=== PATIENT | male | born 1950 | race African-American/Black ===

== ENCOUNTER 2019-12-17 16:26 | Inpatient (IN) ==
[2019-12-17] MEDS ORDERED: FUROSEMIDE 100 MG/10 ML VIAL IV STA (17:53)
[2019-12-17 18:01] LABS: Albumin 3.6 G/DL (3.4-5.0); Bilirubin,Total 0.7 MG/DL (0.2-1.0); Calcium 9.1 MG/DL (8.5-10.1); Ferritin 313.6 ng/ml (26-388); Osmolality,Calculated 307.7 MOS/KG (273-304); Total Protein 7.6 G/DL (6.4-8.3)
[2019-12-17 21:01] LABS: Basophils % 0.4 % (0.0-0.8); Eosinophils # 0.4 10*3/uL (0.0-0.87); Eosinophils % 3.7 % (0.00-10.9); Hematocrit 31.9 VOL% (42.0-52.0); Hemoglobin 10.6 GM/DL (14.0-18.0); Immature Granulocytes % 0.9 %; Immature Granulocytes Absolute 0.08 #; Lymphocytes # 1.7 10*3/uL (1.4-4.0); Lymphocytes % 17.7 % (21.2-54.2); Mean Corpuscular HGB Conc 33.2 GM/DL (32-36); Mean Corpuscular Volume 82.2 FL (87-102); Mean Platelet Volume 10.7 FL (9.6-12.0); Neutrophils % 70.3 % (38.7-73.9); Platelet Count 236 T/CUMM (130-400); Red Blood Count 3.88 MC/CUMM (3.8-5.5); Red Cell Distribution Width 17.6 % (9.3-17.3); White Blood Count 9.3 T/CUMM (4-12)
[2019-12-17 21:03] LABS: Bilirubin,Urine Negative (Negative); Blood, Urine Negative (Negative); Glucose,Urine (UA) Negative (Negative); Ketones,Urine Negative (Negative); Nitrite,Urine Negative (Negative); Protein,Urine 30 MG/DL; RBC,Urine 11 /HPF (0-4); Urine Appearance CLEAR (Clear); Urine Color Straw (Yellow); Urine Specific Gravity 1.008 (1.001-1.035); Urine Urobilinogen < 2.0 EU/DL (0.2-1.0); WBC,Urine 2 /HPF (0-6)
[2019-12-17] MEDS ORDERED: guaiFENesin/DM ER 600-30 MG TABLET PO PRN (22:13)
[2019-12-17] MEDS ORDERED: DEXTROSE 50% 25 GM/50 ML VIAL IV PRN ×2 (22:13)
[2019-12-17] MEDS ORDERED: ACETAMINOPHEN 325 MG TABLET PO PRN (22:13)
[2019-12-17] MEDS ORDERED: GLUCAGON 1 MG VIAL IM PRN ×2 (22:13)
[2019-12-17] MEDS ORDERED: NICOTINE 21 MG/24 HR PATCH TRANSDERM PRN (22:13)
[2019-12-17] MEDS ORDERED: hydrALAZINE 20 MG/1 ML VIAL IV PRN (22:13)
[2019-12-17] MEDS ORDERED: diphenhydrAMINE CAP 25 MG CAPSULE PO PRN (22:13)
[2019-12-17] MEDS ORDERED: hydrALAZINE 20 MG/1 ML VIAL IV STA (22:44)
[2019-12-18] MEDS: ONDANSETRON 4 MG/2 ML VIAL IV PRN ×2 (01:01→12:12)
[2019-12-18 05:23] LABS: Basophils % 0.3 % (0.0-0.8); Eosinophils # 0.2 10*3/uL (0.0-0.87); Eosinophils % 2.4 % (0.00-10.9); Hematocrit 29.5 VOL% (42.0-52.0); Hemoglobin 9.7 GM/DL (14.0-18.0); Immature Granulocytes % 0.7 %; Immature Granulocytes Absolute 0.06 #; Lymphocytes # 1.2 10*3/uL (1.4-4.0); Lymphocytes % 13.7 % (21.2-54.2); Mean Corpuscular HGB Conc 32.9 GM/DL (32-36); Mean Corpuscular Volume 81.3 FL (87-102); Mean Platelet Volume 10.4 FL (9.6-12.0); Neutrophils % 78.9 % (38.7-73.9); Platelet Count 233 T/CUMM (130-400); Red Blood Count 3.63 MC/CUMM (3.8-5.5); Red Cell Distribution Width 17.4 % (9.3-17.3); White Blood Count 8.8 T/CUMM (4-12)
[2019-12-18 05:43] LABS: Osmolality,Calculated 311.7 MOS/KG (273-304)
[2019-12-18] MEDS: BICTEGRAV EMTRICIT TENOFOV ALA PO SCH (10:00)
[2019-12-18] MEDS: carvediloL 25 MG TABLET PO SCH ×2 (10:31→18:01)
[2019-12-18] MEDS: BUDESONIDE/FORMOTEROL 160-4.5 INHALER 6 GM INH SCH ×2 (10:31→21:22)
[2019-12-18] MEDS: INSULIN LISPRO 100 UNIT/ML SUBCUT SCH ×4 (10:32→21:21)
[2019-12-18] MEDS: HEPARIN 5,000 UNIT/1 ML VIAL SUBCUT SCH ×2 (10:42→21:21)
[2019-12-18] MEDS: TAMSULOSIN 0.4 MG CAPSULE PO SCH ×2 (14:22→21:21)
[2019-12-18] MEDS: SODIUM CHLORIDE 0.9% 1,000 ML IV SCH (14:25)
[2019-12-18 17:02] LABS: Bacteria,Urine Occasional /HPF (Few); Bilirubin,Urine Negative (Negative); Blood, Urine Negative (Negative); Glucose,Urine (UA) Negative (Negative); Ketones,Urine Negative (Negative); Nitrite,Urine Negative (Negative); Protein,Urine 30 MG/DL; Urine Appearance CLEAR (Clear); Urine Color Straw (Yellow); Urine Specific Gravity 1.008 (1.001-1.035); Urine Urobilinogen < 2.0 EU/DL (0.2-1.0)
[2019-12-18] MEDS: LATANOPROST 0.005% OPH SOLN 2.5 ML BOTTLE BOTH EYES SCH (21:22)
[2019-12-18] MEDS: ATORVASTATIN 40 MG TABLET PO SCH (21:22)
[2019-12-19] MEDS: MORPHINE 4 MG/1 ML VIAL IV PRN ×3 (01:00→20:05)
[2019-12-19] MEDS: SODIUM CHLORIDE 0.9% 1,000 ML IV SCH ×2 (04:34→17:34)
[2019-12-19 05:23] LABS: Basophils % 0.4 % (0.0-0.8); Eosinophils # 0.3 10*3/uL (0.0-0.87); Eosinophils % 3.8 % (0.00-10.9); Hematocrit 28.9 VOL% (42.0-52.0); Hemoglobin 9.5 GM/DL (14.0-18.0); Immature Granulocytes % 0.5 %; Immature Granulocytes Absolute 0.04 #; Lymphocytes # 1.3 10*3/uL (1.4-4.0); Lymphocytes % 16.6 % (21.2-54.2); Mean Corpuscular HGB Conc 32.9 GM/DL (32-36); Mean Corpuscular Volume 81.9 FL (87-102); Monocytes % 6.5 % (1.7-12.7); Neutrophils % 72.2 % (38.7-73.9); Platelet Count 232 T/CUMM (130-400); Red Blood Count 3.53 MC/CUMM (3.8-5.5); White Blood Count 7.7 T/CUMM (4-12)
[2019-12-19 05:49] LABS: Albumin 2.9 G/DL (3.4-5.0); Bilirubin,Total 1.1 MG/DL (0.2-1.0); Calcium 8.5 MG/DL (8.5-10.1); Osmolality,Calculated 319.7 MOS/KG (273-304); Total Protein 6.4 G/DL (6.4-8.3)
[2019-12-19] MEDS: INSULIN LISPRO 100 UNIT/ML SUBCUT SCH ×4 (09:31→20:31)
[2019-12-19] MEDS: BICTEGRAV EMTRICIT TENOFOV ALA PO SCH (09:32)
[2019-12-19] MEDS: carvediloL 25 MG TABLET PO SCH ×2 (09:32→17:32)
[2019-12-19] MEDS: amLODIPine 10 MG TABLET PO SCH (09:33)
[2019-12-19] MEDS: TAMSULOSIN 0.4 MG CAPSULE PO SCH ×2 (09:33→20:30)
[2019-12-19] MEDS: HEPARIN 5,000 UNIT/1 ML VIAL SUBCUT SCH ×2 (09:34→20:30)
[2019-12-19] MEDS: BICALUTAMIDE 50 MG TABLET PO SCH (09:34)
[2019-12-19] MEDS: BUDESONIDE/FORMOTEROL 160-4.5 INHALER 6 GM INH SCH ×2 (09:35→20:32)
[2019-12-19] MEDS: ONDANSETRON 4 MG/2 ML VIAL IV PRN (15:41)
[2019-12-19] MEDS: ATORVASTATIN 40 MG TABLET PO SCH (20:30)
[2019-12-19] MEDS: ZALEPLON 5 MG CAPSULE PO PRN (20:30)
[2019-12-19] MEDS: LATANOPROST 0.005% OPH SOLN 2.5 ML BOTTLE BOTH EYES SCH (20:32)
[2019-12-19] MEDS ORDERED: DOCOSANOL 10% CREAM 2 GM TUBE TOP PRN (21:23)
[2019-12-20] MEDS: MORPHINE 4 MG/1 ML VIAL IV PRN ×2 (00:35→04:18)
[2019-12-20] MEDS: SODIUM CHLORIDE 0.9% 1,000 ML IV SCH (05:47)
[2019-12-20 06:02] LABS: Basophils % 0.3 % (0.0-0.8); Eosinophils # 0.3 10*3/uL (0.0-0.87); Eosinophils % 4.9 % (0.00-10.9); Hematocrit 27.2 VOL% (42.0-52.0); Hemoglobin 9.2 GM/DL (14.0-18.0); Immature Granulocytes % 0.2 %; Immature Granulocytes Absolute 0.01 #; Lymphocytes # 1.6 10*3/uL (1.4-4.0); Lymphocytes % 25.3 % (21.2-54.2); Mean Corpuscular HGB Conc 33.8 GM/DL (32-36); Mean Platelet Volume 10.9 FL (9.6-12.0); Monocytes % 8.1 % (1.7-12.7); Neutrophils % 61.2 % (38.7-73.9); Platelet Count 232 T/CUMM (130-400); Red Cell Distribution Width 16.4 % (9.3-17.3); White Blood Count 6.2 T/CUMM (4-12)
[2019-12-20 06:31] LABS: Osmolality,Calculated 312.6 MOS/KG (273-304)
[2019-12-20] MEDS ORDERED: LEUPROLIDE (3 MONTH) 22.5 MG SYRINGE SUBCUT ONE (08:01)
[2019-12-20] MEDS: INSULIN LISPRO 100 UNIT/ML SUBCUT SCH ×4 (08:58→22:33)
[2019-12-20] MEDS: ONDANSETRON 4 MG/2 ML VIAL IV PRN ×2 (09:42→17:45)
[2019-12-20] MEDS: carvediloL 25 MG TABLET PO SCH ×2 (09:47→17:15)
[2019-12-20] MEDS: BICALUTAMIDE 50 MG TABLET PO SCH (09:47)
[2019-12-20] MEDS: TAMSULOSIN 0.4 MG CAPSULE PO SCH ×2 (09:47→22:08)
[2019-12-20] MEDS: amLODIPine 10 MG TABLET PO SCH (09:47)
[2019-12-20] MEDS: BICTEGRAV EMTRICIT TENOFOV ALA PO SCH (09:48)
[2019-12-20] MEDS: BUDESONIDE/FORMOTEROL 160-4.5 INHALER 6 GM INH SCH ×2 (09:49→22:08)
[2019-12-20] MEDS: HEPARIN 5,000 UNIT/1 ML VIAL SUBCUT SCH ×2 (09:49→22:07)
[2019-12-20] MEDS ORDERED: SODIUM CHLORIDE 23.4% CONC INJ 38.5 MEQ, SODIUM BICARB INJ 50 MEQ, POTASSIUM CHLORIDE I... IV SCH (11:00)
[2019-12-20] MEDS: POTASSIUM CHLORIDE IV SCH ×2 (12:15→23:12)
[2019-12-20] MEDS: [UNRECOGNIZED DRUG - OTHER] IV SCH ×2 (12:15→23:12)
[2019-12-20] MEDS: SODIUM BICARB IV SCH ×2 (12:15→23:12)
[2019-12-20] MEDS: STERILE WATER IV SCH ×2 (12:15→23:12)
[2019-12-20] MEDS ORDERED: POTASSIUM CHLORIDE 20 MEQ TABLET PO ONE (17:38)
[2019-12-20] MEDS: ATORVASTATIN 40 MG TABLET PO SCH (22:07)
[2019-12-20] MEDS: LATANOPROST 0.005% OPH SOLN 2.5 ML BOTTLE BOTH EYES SCH (22:08)
[2019-12-20] MEDS: DOCUSATE SODIUM 100 MG CAPSULE PO PRN (23:11)
[2019-12-21 04:46] LABS: Basophils % 0.6 % (0.0-0.8); Eosinophils # 0.4 10*3/uL (0.0-0.87); Eosinophils % 7.9 % (0.00-10.9); Hematocrit 27.8 VOL% (42.0-52.0); Hemoglobin 9.2 GM/DL (14.0-18.0); Immature Granulocytes % 0.4 %; Immature Granulocytes Absolute 0.02 #; Lymphocytes # 1.5 10*3/uL (1.4-4.0); Lymphocytes % 27.6 % (21.2-54.2); Mean Corpuscular HGB Conc 33.1 GM/DL (32-36); Mean Corpuscular Volume 79.7 FL (87-102); Mean Platelet Volume 10.8 FL (9.6-12.0); Monocytes % 8.8 % (1.7-12.7); Neutrophils % 54.7 % (38.7-73.9); Platelet Count 270 T/CUMM (130-400); Red Blood Count 3.49 MC/CUMM (3.8-5.5); Red Cell Distribution Width 16.2 % (9.3-17.3); White Blood Count 5.3 T/CUMM (4-12)
[2019-12-21] MEDS: ONDANSETRON 4 MG/2 ML VIAL IV PRN ×3 (08:09→17:20)
[2019-12-21] MEDS: INSULIN LISPRO 100 UNIT/ML SUBCUT SCH ×4 (08:22→23:05)
[2019-12-21] MEDS: DOCUSATE SODIUM 100 MG CAPSULE PO PRN (09:11)
[2019-12-21] MEDS: BICALUTAMIDE 50 MG TABLET PO SCH (09:11)
[2019-12-21] MEDS: TAMSULOSIN 0.4 MG CAPSULE PO SCH ×2 (09:11→21:20)
[2019-12-21] MEDS: carvediloL 25 MG TABLET PO SCH ×2 (09:11→16:50)
[2019-12-21] MEDS: POTASSIUM CHLORIDE 20 MEQ TABLET PO PRN ×4 (09:11→17:58)
[2019-12-21] MEDS: amLODIPine 10 MG TABLET PO SCH (09:11)
[2019-12-21] MEDS: BUDESONIDE/FORMOTEROL 160-4.5 INHALER 6 GM INH SCH ×2 (09:12→21:23)
[2019-12-21] MEDS: HEPARIN 5,000 UNIT/1 ML VIAL SUBCUT SCH ×2 (09:17→21:20)
[2019-12-21] MEDS: BICTEGRAV EMTRICIT TENOFOV ALA PO SCH (09:18)
[2019-12-21] MEDS: SODIUM BICARB IV SCH ×2 (09:30→23:06)
[2019-12-21] MEDS: POTASSIUM CHLORIDE IV SCH ×2 (09:30→23:06)
[2019-12-21] MEDS: [UNRECOGNIZED DRUG - OTHER] IV SCH ×2 (09:30→23:06)
[2019-12-21] MEDS: STERILE WATER IV SCH ×2 (09:30→23:06)
[2019-12-21] MEDS: ATORVASTATIN 40 MG TABLET PO SCH (21:20)
[2019-12-21] MEDS: LATANOPROST 0.005% OPH SOLN 2.5 ML BOTTLE BOTH EYES SCH (21:56)
[2019-12-22] MEDS: POTASSIUM CHLORIDE 20 MEQ TABLET PO PRN (00:12)
[2019-12-22] MEDS: ZALEPLON 5 MG CAPSULE PO PRN (00:14)
[2019-12-22 06:46] LABS: Calcium 8.1 MG/DL (8.5-10.1)
[2019-12-22] MEDS: INSULIN LISPRO 100 UNIT/ML SUBCUT SCH ×4 (08:12→21:26)
[2019-12-22] MEDS: BICTEGRAV EMTRICIT TENOFOV ALA PO SCH (09:14)
[2019-12-22] MEDS: BICALUTAMIDE 50 MG TABLET PO SCH (09:14)
[2019-12-22] MEDS: BUDESONIDE/FORMOTEROL 160-4.5 INHALER 6 GM INH SCH ×2 (09:14→21:29)
[2019-12-22] MEDS: amLODIPine 10 MG TABLET PO SCH (09:14)
[2019-12-22] MEDS: carvediloL 25 MG TABLET PO SCH ×2 (09:14→17:23)
[2019-12-22] MEDS: HEPARIN 5,000 UNIT/1 ML VIAL SUBCUT SCH ×2 (09:14→21:28)
[2019-12-22] MEDS: TAMSULOSIN 0.4 MG CAPSULE PO SCH ×2 (09:14→21:26)
[2019-12-22] MEDS: [UNRECOGNIZED DRUG - OTHER] IV SCH (11:38)
[2019-12-22] MEDS: SODIUM BICARB IV SCH (11:38)
[2019-12-22] MEDS: STERILE WATER IV SCH (11:38)
[2019-12-22] MEDS: POTASSIUM CHLORIDE IV SCH (11:38)
[2019-12-22] MEDS: ONDANSETRON 4 MG/2 ML VIAL IV PRN (11:38)
[2019-12-22] MEDS: SODIUM CHLORIDE 0.45% 1,000 ML IV SCH (15:53)
[2019-12-22] MEDS: POTASSIUM CHLORIDE 20 MEQ TABLET PO SCH (21:26)
[2019-12-22] MEDS: ATORVASTATIN 40 MG TABLET PO SCH (21:26)
[2019-12-22] MEDS: LATANOPROST 0.005% OPH SOLN 2.5 ML BOTTLE BOTH EYES SCH (21:55)
[2019-12-23] MEDS: ZALEPLON 5 MG CAPSULE PO PRN ×2 (00:11→21:21)
[2019-12-23 05:32] LABS: Basophils % 0.6 % (0.0-0.8); Eosinophils # 0.4 10*3/uL (0.0-0.87); Eosinophils % 8.6 % (0.00-10.9); Hematocrit 29.3 VOL% (42.0-52.0); Hemoglobin 9.6 GM/DL (14.0-18.0); Immature Granulocytes % 0.2 %; Immature Granulocytes Absolute 0.01 #; Lymphocytes # 1.8 10*3/uL (1.4-4.0); Lymphocytes % 34.3 % (21.2-54.2); Mean Corpuscular HGB Conc 32.8 GM/DL (32-36); Mean Corpuscular Volume 82.8 FL (87-102); Mean Platelet Volume 10.2 FL (9.6-12.0); Monocytes % 8.8 % (1.7-12.7); Neutrophils % 47.5 % (38.7-73.9); Platelet Count 298 T/CUMM (130-400); Red Blood Count 3.54 MC/CUMM (3.8-5.5); Red Cell Distribution Width 16.1 % (9.3-17.3); White Blood Count 5.1 T/CUMM (4-12)
[2019-12-23 05:49] LABS: Calcium 8.2 MG/DL (8.5-10.1)
[2019-12-23] MEDS: INSULIN LISPRO 100 UNIT/ML SUBCUT SCH ×4 (08:09→21:22)
[2019-12-23] MEDS: HEPARIN 5,000 UNIT/1 ML VIAL SUBCUT SCH ×2 (08:46→21:21)
[2019-12-23] MEDS: POTASSIUM CHLORIDE 20 MEQ TABLET PO SCH ×2 (08:47→21:21)
[2019-12-23] MEDS: TAMSULOSIN 0.4 MG CAPSULE PO SCH ×2 (08:47→21:21)
[2019-12-23] MEDS: carvediloL 25 MG TABLET PO SCH ×2 (08:47→16:05)
[2019-12-23] MEDS: BICALUTAMIDE 50 MG TABLET PO SCH (08:47)
[2019-12-23] MEDS: BICTEGRAV EMTRICIT TENOFOV ALA PO SCH (08:47)
[2019-12-23] MEDS: BUDESONIDE/FORMOTEROL 160-4.5 INHALER 6 GM INH SCH ×2 (08:47→21:22)
[2019-12-23] MEDS: amLODIPine 10 MG TABLET PO SCH (08:47)
[2019-12-23] MEDS ORDERED: MAGNESIUM SULF RIDER 4 GM in PREMIX 1 EACH IV ONE (11:33)
[2019-12-23] MEDS: SODIUM CHLORIDE 0.45% 1,000 ML IV SCH (13:22)
[2019-12-23] MEDS: ATORVASTATIN 40 MG TABLET PO SCH (21:21)
[2019-12-23] MEDS: LATANOPROST 0.005% OPH SOLN 2.5 ML BOTTLE BOTH EYES SCH (21:28)
[2019-12-24 06:13] LABS: Basophils % 0.8 % (0.0-0.8); Eosinophils # 0.4 10*3/uL (0.0-0.87); Eosinophils % 7.1 % (0.00-10.9); Hemoglobin 9.1 GM/DL (14.0-18.0); Immature Granulocytes % 0.4 %; Immature Granulocytes Absolute 0.02 #; Lymphocytes # 1.7 10*3/uL (1.4-4.0); Lymphocytes % 32.9 % (21.2-54.2); Mean Corpuscular HGB Conc 31.4 GM/DL (32-36); Mean Corpuscular Volume 85.3 FL (87-102); Mean Platelet Volume 11.4 FL (9.6-12.0); Neutrophils % 48.8 % (38.7-73.9); Platelet Count 216 T/CUMM (130-400); Red Cell Distribution Width 16.2 % (9.3-17.3); White Blood Count 5.1 T/CUMM (4-12)
[2019-12-24 06:34] LABS: Hypochromasia 1+; Microcytosis 1+; Platelet Estimate Adequate
[2019-12-24 06:37] LABS: Calcium 8.7 MG/DL (8.5-10.1); Osmolality,Calculated 288.4 MOS/KG (273-304)
[2019-12-24] MEDS: INSULIN LISPRO 100 UNIT/ML SUBCUT SCH (09:44)
[2019-12-24] MEDS: BUDESONIDE/FORMOTEROL 160-4.5 INHALER 6 GM INH SCH (09:46)
[2019-12-24] MEDS: POTASSIUM CHLORIDE 20 MEQ TABLET PO SCH (09:46)
[2019-12-24] MEDS: carvediloL 25 MG TABLET PO SCH (09:46)
[2019-12-24] MEDS: amLODIPine 10 MG TABLET PO SCH (09:46)
[2019-12-24] MEDS: BICALUTAMIDE 50 MG TABLET PO SCH (09:46)
[2019-12-24] MEDS: HEPARIN 5,000 UNIT/1 ML VIAL SUBCUT SCH (09:46)
[2019-12-24] MEDS: TAMSULOSIN 0.4 MG CAPSULE PO SCH (09:46)
[2019-12-24] MEDS: BICTEGRAV EMTRICIT TENOFOV ALA PO SCH (09:47)
[2019-12-24 12:41] VITALS: BP 109/73
== END 2019-12-24 14:07 | disposition home or self-care (01) | DRG 683 ==
LOC: N.ED 16:26 → N.EDINP 22:13 → SUATTDRO 22:13 → N.TELEN 22:52
PROVIDERS: ADMIT Emergency Medicine; ATTEND Internal Medicine